=== PATIENT | female | born 1970 | race Caucasian/White ===

== ENCOUNTER → 2023-10-16 | Outpatient (CLI) | payer BC | LOC: MAMMO 13:30 | DX: Z12.31 Encounter for screening mammogram for malignant neoplasm of breast (principal) ==

== ENCOUNTER → 2024-07-31 | Outpatient (CLI) | payer BC | LOC: RAD 08:59 | DX: M25.862 Other specified joint disorders, left knee (principal); M25.561 Pain in right knee ==